=== PATIENT | male | born 2000 | race Caucasian/White ===

== ENCOUNTER 2019-03-11 23:11 | Observation (INO) | payer OTHER ==
[~2019-03-11 23:11] MED LIST: Iopamidol-370 76% 500 ML 1 ML ONE
[2019-03-11 23:48] LABS: #Basophils 0.1 thou/uL (0.0-0.2); #Eosinphils 0.2 thou/uL (0.0-0.7); #Lymphocytes 1.6 thou/uL (1.20-3.40); #Monocytes 1.2 thou/uL (0.11-0.59); #Neutrophils 11.2 thou/uL (1.40-6.50); %Basophils 0.4 % (0.0-1.0); %Eosinophils 1.3 % (0.0-10.0); %Lymphocytes 11.4 % (28.0-48.0); %Monocytes 8.4 % (0.0-4.0); %Neutrophils 78.5 % (31.0-61.0); Hemoglobin 14.6 g/dL (14.0-18.0); Mean Corpuscular HGB CONC 33.6 g/dL (32.0-36.0); Mean Corpuscular Hemoglobin 30.4 pg (25.0-35.0); Mean Corpuscular Volume 90.6 fL (78.0-98.0); Mean Platelet Volume 7.8 fL (7.4-10.4); Platelet Count 187 thou/uL (130-400); RBC Distribution Width 11.9 % (11.5-14.5); Red Blood Cell (RBC) Count 4.81 mill/uL (4.00-5.20); White Blood Cell (WBC) Count 14.2 thou/uL (4.8-10.8)
--- NOTE | 2019-03-12 00:03 | ULT ---
US Gallbladder RUQ HISTORY: Right upper quadrant pain. COMPARISON: None. FINDINGS: Real-time imaging of the right upper quadrant shows a contracted appearing gallbladder, thi s could be related to nonfasting state. No gallstones are identified. The common duct is 2 mm. The liver measures 17 cm and shows no focal abnormalities. The right kidney and pancreas regions appear unremarkable. IMPRESSION: Contracted gallbladder without evidence of gallstones.
[2019-03-12 00:13] LABS: ALT (SGPT) 11 U/L (8-55); AST (SGOT) 18 U/L (5-34); Albumin 4.8 g/dL (3.5-5.0); Alkaline Phosphatase 46 U/L (50-130); Anion Gap 12 mmol/L (10-20); BUN (Urea Nitrogen) 16 mg/dL (8.9-20.6); Bilirubin, Total 0.6 mg/dL (0.2-1.2); Calc. Creatinine Clearance 0 mL/min (70-130); Calcium 9.5 mg/dL (7.8-10.44); Carbon Dioxide 25 mmol/L (22-29); Chloride 106 mmol/L (98-107); Estimated GFR-MDRD 65; Globulin 2.6 g/dL (2.4-3.5); Glucose 110 mg/dL (70-105); Lipase 17 U/L (8-78); Protein, Total 7.4 g/dL (6.0-8.3); Sodium 139 mmol/L (136-145)
[2019-03-12] MEDS ORDERED: Piperacillin/Tazobactam 3.375 GM VIAL ONE (00:43)
[2019-03-12 01:21] LABS: Bilirubin Negative (Negative); Blood, Urine Negative (Negative); Clarity Clear (Clear); Glucose, Urine (Dipstick) Normal (Negative); Leukocyte Negative Leu/uL (Negative); Nitrite Negative (Negative); Protein, Urine (Dipstick) 10 mg/dL (Neg-Trace); Urobilinogen Normal mg/dL (Less than 2)
[2019-03-12 01:43] VITALS: BMI 26.6
[2019-03-12] MEDS ORDERED: Ondansetron PF 4 MG/2 ML Vial IVP PRN ×2 (01:43→16:25)
[2019-03-12] MEDS ORDERED: Ondansetron ODT 4 MG TAB SL PRN (01:43)
[2019-03-12] MEDS ORDERED: Morphine 4 MG/ML VIAL SLOW IVP PRN ×2 (01:44→16:25)
[2019-03-12] MEDS: Piperacillin/Tazobactam 3.375 GM in Sodium Chloride 0.9% 100 ML IVPB SCH ×2 (05:49→11:48)
--- NOTE | 2019-03-12 07:53 | CT ---
PRELIMINARY REPORT/[facility]/EMERGENCY AFTER HOURS PROCEDURE: Receipt of this report by the clinical staff was confirmed with Ayanna Ordonez RN by Olga Jain on Mar 12, 2019 00:33:00 LUNCHROOM ATTENDANT. Addendum electronically signed by Olga Jain on March 12, 2019 12:34:48 AM LUNCHROOM ATTENDANT EXAM: CT Abdomen and Pelvis with Intravenous Contrast CLINICAL HISTORY: ER 12... M18 presented to the ED with a c/o RLQ pain onset this morning. Pt reports nausea. Pt denies vomiting or diarrhea. Pt reports fever of 100.3. Pt denies hx of surgery in the abdomen TECHNIQUE: Axial computed tomography images of the abdomen and pelvis with intravenous contrast. Cor onal and sagittal reformatted images provided. CONTRAST: With; isovue 370, 90ml COMPARISON: None provided. FINDINGS: LUNG BASES: No basilar airspace consolidation or pleural effusion. LIVER: Unremarkable. GALLBLADDER AND BILE DUCTS: Unremarkable. Contracted. No calcified stone. No ductal dilation. PANCREAS: Unremarkable. SPLEEN: Unremarkable. ADRENAL GLANDS: Unremarkable. KIDNEYS, URETERS, AND BLADDER: Unremarkable. No hydronephrosis or nephrolithiasis. No ureteral or joshua dder calculi. STOMACH AND BOWEL: No obstruction. No wall thickening. No CT evidence of colitis or acute diverticuli tis. APPENDIX: The appendix is enlarged to 12 mm with enhancing mucosa and periappendiceal fluid. There is a appendicolith near the base of the appendix. Small intraluminal gas within the tip of the appendix. No obvious abscess or camila extraluminal free air. PERITONEUM: No free fluid. No free air. LYMPH NODES: No pathologic lymphadenopathy. REPRODUCTIVE: Unremarkable as visualized. VASCULATURE: No aortic aneurysm. BONES: No fracture or suspicious osseous abnormality. ABDOMINAL WALL AND SOFT TISSUES: Unremarkable. IMPRESSION: Findings are most consistent with acute appendicitis. Given the adjacent free fluid, micr operforation or adjacent phlegmon cannot be excluded. Recommend surgical consultation. ELECTRONICALLY SIGNED BY: Ming Anguiano M.D. Mar 12, 2019 12:31:51 AM LUNCHROOM ATTENDANT FINAL REPORT EMERGENT AFTER HOURS CT ABDOMEN AND PELVIS WITH IV CONTRAST: HISTORY: Right lower quadrant abdominal pain with symptoms this morning. Subjective fever. COMPARISON: None. IMPRESSION: 1. Evidence of acute appendicitis with periappendiceal fluid present. No focus of free intraperitonea l gas is identified, and there is no fluid collection seen to suggest an abscess at this time. 2. Findings are agreement with the preliminary report by [facility]. Transcribed Date/Time: 03/12/2019 8:15 AM
[2019-03-12] MEDS ORDERED: Ketorolac Tromethamine 30 MG/ML VIAL ONE (09:07)
[2019-03-12] MEDS ORDERED: PROPOFOL 200 MG/20 ML VIAL ONE (09:07)
[2019-03-12] MEDS ORDERED: Dexamethasone 20 MG/5 ML VIAL ONE (09:07)
[2019-03-12] MEDS ORDERED: Rocuronium Bromide 10 MG/ML (10ML VIAL) ONE (09:07)
[2019-03-12] MEDS ORDERED: Ondansetron PF 4 MG/2 ML Vial ONE (09:07)
[2019-03-12] MEDS ORDERED: Lidocaine 1% PF 5 ML VIAL ONE (09:07)
[2019-03-12] MEDS: Lactated Ringer's 1,000 ML IV SCH ×2 (09:36→09:45)
[2019-03-12] MEDS ORDERED: Fentanyl 100 MCG/2 ML VIAL ONE (12:46)
[2019-03-12] MEDS ORDERED: HYDROmorphone 2 MG/ML VIAL ONE (12:46)
[2019-03-12] MEDS ORDERED: Bupivacaine 0.25% HCL 30 ML VIAL ONE ×2 (13:02→14:47)
[2019-03-12] MEDS ORDERED: Lidocaine 1% w/Epinephrine 1:100K 20 ML VIAL ONE (13:02)
[2019-03-12] MEDS ORDERED: Fentanyl 250 MCG/5 ML VIAL ONE (14:01)
[2019-03-12] MEDS ORDERED: Midazolam HCl 2 mg/2 ml Vial ONE (14:01)
[2019-03-12] MEDS ORDERED: SUGAMMADEX SODIUM 500 MG/5 ML VIAL ONE (15:56)
[2019-03-12] MEDS ORDERED: Ondansetron HCl/PF 4 MG/2 ML Vial IVP PRN (16:19)
[2019-03-12] MEDS ORDERED: Meperidine HCl/PF 25 MG/ML VIAL SLOW IVP PRN (16:19)
[2019-03-12] MEDS ORDERED: Promethazine HCl 25 MG/ML VIAL SLOW IVP PRN (16:19)
[2019-03-12] MEDS ORDERED: Morphine 2 MG/ML SYRINGE SLOW IVP PRN (16:25)
[2019-03-12] MEDS ORDERED: Dextrose 5% in Water 1,000 ML IV PRN (16:25)
[2019-03-12] MEDS ORDERED: HYDROcodone/Acetaminophen 7.5/325 mg Tablet PO PRN (16:25)
[2019-03-12] MEDS ORDERED: Promethazine HCl 25 MG/ML VIAL IM PRN (16:25)
[2019-03-12] MEDS ORDERED: Dextrose 50% Abboject 50 ML SYRINGE SLOW IVP PRN (16:25)
[2019-03-12] MEDS ORDERED: D5 1/2 NS w/20 mEq KCL 1,000 ML IV SCH (16:25)
[2019-03-12] MEDS ORDERED: hydrALAZINE 20 MG/ML VIAL SLOW IVP PRN (16:25)
--- NOTE | 2019-03-12 16:48 | OP ---
DATE OF PROCEDURE: 03/12/2019 PREOPERATIVE DIAGNOSIS: Acute appendicitis. POSTOPERATIVE DIAGNOSIS: Acute appendicitis. PROCEDURE PERFORMED: Laparoscopic appendectomy. ANESTHESIA: General. ESTIMATED BLOOD LOSS: Minimal. COMPLICATIONS: None. SPECIMEN: Appendix. FINDINGS: Appendicitis. TECHNIQUE: The patient was taken to the operating room and laid supine on the operating room table. After general anesthetic was obtained, the abdomen was prepped and draped in a sterile fashion. A curved incision was made below the umbilicus. Cautery was used to dissect down to the fascia and score the fascia. Abdominal cavity was entered bluntly using a Margaux clamp. Holding stitch of PDS was placed on each side of the fascia. Luz trocar was placed. High-flow pneumoperitoneum was obtained. Suprapubic 5 mm port and left lower quadrant 5 mm port were placed under direct visualization. The cecum was rolled over to reveal acute appendicitis. Window was made at the base of the appendix. Laparoscopic stapler was fired across the base of appendix. A reload was fired across the mesoappendix. Appendix was placed in EndoCatch bag and brought out through the Lzu. All port sites were infiltrated using local anesthetic. There was no bleeding or purulence in the abdomen. The abdomen was irrigated. All port sites were infiltrated using local anesthetic. After removing the left lower quadrant port, there was some bleeding at the site. This fascial defect was closed using GraNee needle 0 Vicryl tie. All ports were removed under camera vision with no more bleeding. Pneumoperitoneum was let down. PDS was used to close the fascial defect below the umbilicus. All incisions were irrigated and closed using 4-0 Monocryl and Dermabond. The patient was sent to Recovery in stable condition. All instrument counts, needle counts, and lap counts were correct. Job ID: [id number]
[2019-03-12 17:09] VITALS: BP 144/75; TEMP 97.5
--- NOTE | 2019-03-12 17:54 | HP ---
CHIEF COMPLAINT: Lower abdominal pain. HISTORY OF PRESENT ILLNESS: This is a 18-year-old male, who presents with pain in his lower abdomen, described as sharp, 10/10, does not radiate. Not associated with fever, chills, nausea, vomiting. Never had this pain before. Seen in the emergency room, where a CT shows acute appendicitis. PAST MEDICAL HISTORY: Denies. PAST SURGICAL HISTORY: Denies. MEDICATIONS: Taken daily, none. ALLERGIES: NO KNOWN DRUG ALLERGIES. SOCIAL HISTORY: No smoking, alcohol, or other drugs. He is a student. REVIEW OF SYSTEMS: Ten-system review of systems is otherwise negative unless described above. PHYSICAL EXAMINATION: HEENT: Sclerae are anicteric. Oropharynx clear. NECK: No lymphadenopathy. CHEST: Clear. HEART: Regular rate. ABDOMEN: Soft. Tender right lower quadrant with localized guarding and rebound tenderness. No abdominal or inguinal hernias. EXTREMITIES: No ischemic or edema to extremities. IMAGING DATA: CT scan shows acute appendicitis. ASSESSMENT: Acute appendicitis. PLAN: Laparoscopic appendectomy. Risks, benefits, and alternatives discussed. He gives consent. We will do this today. Job ID: [id number]
[2019-03-12] MEDS ORDERED: Famotidine 20 MG TAB PO SCH (21:00)
[2019-03-12] MEDS ORDERED: Famotidine/PF 20 mg/2ml Vial SLOW IVP SCH (21:00)
[2019-03-12] MEDS ORDERED: FLU VACC QS2019-20(6MOS UP)/PF 60 MCG/0.5 ML SYRINGE IM ONE (21:00)
== END 2019-03-12 19:00 | disposition home or self-care (01) ==
LOC: ERS 23:11 → T4-B 03-12 01:35
PROVIDERS: ADMIT Surgery; ATTEND Surgery
PROC: 0DTJ4ZZ Resection of Appendix, Percutaneous Endoscopic Approach (ICD-10-PCS; principal; 2019-03-12)
DX: K35.80 Unspecified acute appendicitis (principal)
CPT/HCPCS: 74177; 76705; 80053; 81003; 83690; 85025; 88304; 96365; 96372; 96375; 96376; G0378; J1100; J1170; J1885; J2001; J2250; J2270; J2405; J2543; J2550; J2704; J3010; J3490; Q9967; S0020